=== PATIENT | female | born 1975 | race Caucasian/White ===

== ENCOUNTER 2016-12-24 09:17 | Observation (INO) | payer OTHER ==
[2016-12-24 09:23] VITALS: BP 171/84; PULSE 73; RESP 18; TEMP 98.6; O2SAT 100
[2016-12-24] MEDS ORDERED: Sodium Chloride 0.9% 1,000 ML IV STA (09:43)
--- NOTE | 2016-12-24 09:57 | ED PDOC ---
HPI: Female Pain Time Seen by Provider: 12/24/16 09:26 Chief Complaint (Nursing): Female Genitourinary Chief Complaint (Provider): Vaginal bleeding History Per: Patient History/Exam Limitations: no limitations Onset/Duration Of Symptoms: Days (15) Current Symptoms Are (Timing): Still Present Additional History Per: Patient Additional Complaint(s): Vaginal bleeding for 15 days. Period started 15 days ago and never stopped. Feels pain to the left pelvic and abd. No nausea, vomit, diarrhea. No back pain. No dysuria. No chest pain, dizziness. Past Medical History Reviewed: Nursing Documentation, Vital Signs Vital Signs: Last Vital Signs Temp 98.6 F 12/24/16 09:22 Pulse 73 12/24/16 09:22 Resp 18 12/24/16 09:22 BP 171/84 H 12/24/16 09:22 Pulse Ox 100 12/24/16 09:22 - Medical History PMH: No Chronic Diseases - Surgical History Other surgeries: tubal ligation - Family History Family History: States: Unknown Family Hx - Living Arrangements Living Arrangements: With Family - Social History Current smoker - smoking cessation education provided: No Alcohol: None Drugs: Denies - Allergies Allergies/Adverse Reactions: Allergies Allergy/AdvReac Type Severity Reaction Status Date / Time No Known Allergies Allergy Verified 12/24/16 09:28 Review of Systems ROS Statement: Except As Marked, All Systems Reviewed And Found Negative Gastrointestinal: Positive for: Abdominal Pain Genitourinary Female: Positive for: Vaginal Bleeding, Pelvic Pain Physical Exam - Reviewed Nursing Documentation Reviewed: Yes Vital Signs Reviewed: Yes - Physical Exam Appears: Positive for: Well, Non-toxic, No Acute Distress Head Exam: Positive for: ATRAUMATIC, NORMAL INSPECTION, NORMOCEPHALIC Skin: Positive for: Normal Color, Warm, DRY Eye Exam: Positive for: EOMI, Normal appearance, PERRL ENT: Positive for: Normal ENT Inspection Neck: Positive for: Normal, Painless ROM, Supple Cardiovascular/Chest: Positive for: Regular Rate, Rhythm Respiratory: Positive for: CNT, Normal Breath Sounds Gastrointestinal/Abdominal: Positive for: Bowel Sounds, Soft, Tenderness (abd pain upper and lower abd L mild) Pelvic Exam: Positive for: External Exam Normal. Negative for: Speculum Exam Normal (mild vaginal bleeding, dark blood.), Tender Adnexa, Tender Uterus Back: Positive for: Normal Inspection. Negative for: L CVA Tenderness, R CVA Tenderness Extremity: Positive for: Normal ROM Neurologic/Psych: Positive for: Alert, Oriented - Laboratory Results Result Diagrams: 12/24/16 09:56 12/24/16 09:56 Interpretation Of Abn Labs: no acute - ECG O2 Sat by Pulse Oximetry: 100 - CT Scan/US US Other Rad Studies (CT/US): Read By Radiologist Other Rad Interpretation: ovarian cyst ED OBSERVATION Discharge: Yes Date of observation admission: 12/24/16 Time of observation admission: 09:45 - Observation admission statement Patient is being placed in observation because:: abd pain eval - Goals of Observation Goals of observation are:: labs and imaging pending - Progress Note Progress Note: 12/24/16 13:35 Stable. Feels better. Fu with obgyn. Disposition - Clinical Impression Clinical Impression: Abnormal vaginal bleeding - Patient ED Disposition Is Patient to be Admitted: No Counseled Patient/Family Regarding: Studies Performed, Diagnosis, Need For Followup - Disposition Disposition: Routine/Home Disposition Time: 13:40 Condition: STABLE
[2016-12-24 10:12] LABS: BASO % 0.5 % (0.0-2.0); EOS # 0.5 K/uL (0.0-0.7); EOS % 6.1 % (0.0-4.0); HEMATOCRIT 35.5 % (34.0-47.0); LYMPH # 2.1 K/uL (1.0-4.3); LYMPH % 25.8 % (20.0-40.0); MEAN CELL VOLUME 87.3 fl (81.0-99.0); MEAN CORPUSCULAR HEMOGLOBIN 30.1 pg (27.0-31.0); MEAN CORPUSCULAR HGB CONC 34.5 g/dL (33.0-37.0); MONO # 0.5 K/uL (0.0-0.8); MONO % 6.3 % (0.0-10.0); NEUT # 5.1 K/uL (1.8-7.0); NEUT % 61.3 % (50.0-75.0); WHITE BLOOD COUNT 8.3 K/uL (4.8-10.8)
[2016-12-24 10:23] LABS: ALB/GLOB RATIO 1.2 (1.0-2.1); ALKALINE PHOSPHATASE 63 U/L (38-126); ALT/SGPT 24 U/L (9-52); AST/SGOT 22 U/L (14-36); BILIRUBIN,TOTAL 0.4 mg/dl (0.2-1.3); BLOOD UREA NITROGEN 8 mg/dl (7-17); CALCIUM 9.2 mg/dL (8.4-10.2); CARBON DIOXIDE 24 mmol/L (22-30); CHLORIDE 105 mmol/L (98-107); GFR AFRICAN-AMERICAN > 60; GLUCOSE,RANDOM 158 mg/dL (65-105); POTASSIUM 4.1 MMOL/L (3.6-5.0); SODIUM 141 mmol/l (132-148); TOTAL PROTEIN 7.2 G/DL (6.3-8.2)
[2016-12-24 10:26] LABS: PARTIAL THROMBOPLASTIN TIME 24.6 SECONDS (23.3-32.5)
--- NOTE | 2016-12-24 12:12 | US ---
HISTORY: pelvic pain COMPARISON: None available. TECHNIQUE: Pelvis ultrasound FINDINGS: UTERUS: Measures 9.6 x 4.4 x 5.8 cm. Anteverted. ENDOMETRIUM: Measures 8 mm in diameter. CERVIX: No cervical abnormality identified. RIGHT OVARY: Measures 3.4 x 2.2 x 2.3 cm. Blood flow is demonstrated. 2.3 x 1.8 x 1.6 hypoechoic lesion with evidence of septation, likely cyst. LEFT OVARY: Measures 3.9 x 1.6 x 2.4 cm. Blood flow is demonstrated. FREE FLUID: No significant free fluid noted. OTHER FINDINGS: None. IMPRESSION: 2.3 x 1.8 x 1.6 right ovarian hypoechoic lesion with evidence of septation, likely cyst. Recommend 6 week ultrasound follow-up to assess for resolution.
== END 2016-12-24 13:41 | disposition home or self-care (01) ==
LOC: H.ER 09:17 → H.EROBSV 09:43
PROVIDERS: ADMIT Emergency Medicine; ATTEND Emergency Medicine
DX: N93.9 Abnormal uterine and vaginal bleeding, unspecified (principal)

== ENCOUNTER 2017-01-07 13:37 | Emergency (ER) | payer OTHER, SELFPAY ==
[2017-01-07 14:21] VITALS: O2SAT 98
[2017-01-07 14:26] VITALS: BP 146/93; PULSE 72; RESP 20; TEMP 98.5
[2017-01-07] MEDS ORDERED: Sodium Chloride 0.9% 1,000 ML IV STA (14:45)
[2017-01-07 15:36] LABS: HEMATOCRIT 32.2 % (34.0-47.0); MEAN CELL VOLUME 87.1 fl (81.0-99.0); MEAN CORPUSCULAR HEMOGLOBIN 29.1 pg (27.0-31.0); MEAN CORPUSCULAR HGB CONC 33.4 g/dL (33.0-37.0); RED CELL DISTRIBUTION WIDTH 13.1 % (11.5-14.5); WHITE BLOOD COUNT 9.6 K/uL (4.8-10.8)
--- NOTE | 2017-01-07 15:48 | ED PDOC ---
HPI: Female Pain Time Seen by Provider: 01/07/17 14:44 Chief Complaint (Nursing): Abdominal Pain Chief Complaint (Provider): Vaginal bleeding History Per: Patient History/Exam Limitations: no limitations Onset/Duration Of Symptoms: Days Current Symptoms Are (Timing): Still Present Additional Complaint(s): Pt was here on 12/24/16 for vaginal bleeding. Pt states she called the clinic to make an appointment but they told her she had to be seen in the ER first. states when he called he told them he was referred by Dr. Blaine Barry, he did not mention she was seen in ER. PT states the bleeding is the same. Denies SOB, dizziness, etc. Past Medical History Reviewed: Historical Data, Nursing Documentation, Vital Signs Vital Signs: Last Vital Signs Temp 98.5 F 01/07/17 14:26 Pulse 72 01/07/17 14:26 Resp 20 01/07/17 14:26 BP 146/93 H 01/07/17 14:26 Pulse Ox 98 01/07/17 14:26 - Medical History PMH: No Chronic Diseases - Surgical History Surgical History: No Surg Hx - Family History Family History: States: Unknown Family Hx - Living Arrangements Living Arrangements: With Family - Social History Current smoker - smoking cessation education provided: No - Home Medications Home Medications: Ambulatory Orders Medication Instructions Recorded MedroxyPROGESTERone [Provera] 10 mg PO DAILY #10 tab 01/07/17 - Allergies Allergies/Adverse Reactions: Allergies Allergy/AdvReac Type Severity Reaction Status Date / Time No Known Allergies Allergy Verified 01/07/17 14:17 Review of Systems ROS Statement: Except As Marked, All Systems Reviewed And Found Negative Genitourinary Female: Positive for: Vaginal Bleeding Physical Exam - Reviewed Nursing Documentation Reviewed: Yes Vital Signs Reviewed: Yes - Physical Exam Appears: Positive for: Well, Non-toxic, No Acute Distress Head Exam: Positive for: ATRAUMATIC, NORMAL INSPECTION, NORMOCEPHALIC Skin: Positive for: Normal Color, Warm, DRY Eye Exam: Positive for: Normal appearance ENT: Positive for: Normal ENT Inspection Neck: Positive for: Normal, Painless ROM Cardiovascular/Chest: Positive for: Regular Rate, Rhythm Respiratory: Positive for: Normal Breath Sounds. Negative for: Accessory Muscle Use, Respiratory Distress Gastrointestinal/Abdominal: Positive for: Normal Exam, Bowel Sounds, Soft. Negative for: Tenderness Back: Positive for: Normal Inspection Extremity: Positive for: Normal ROM Neurologic/Psych: Positive for: Alert, Oriented - Laboratory Results Result Diagrams: 01/07/17 15:15 01/07/17 15:15 - ECG O2 Sat by Pulse Oximetry: 98 Disposition - Clinical Impression Clinical Impression: Abnormal vaginal bleeding - Patient ED Disposition Is Patient to be Admitted: No Counseled Patient/Family Regarding: Diagnosis, Need For Followup, Rx Given - [facility]position [facility] Disposition: Routine/Home Disposition Time: 17:01 Condition: GOOD Prescriptions: MedroxyPROGESTERone [Provera] 10 mg PO DAILY #10 tab Instructions: Dysfunctional Uterine Bleeding (ED)
[2017-01-07 15:50] LABS: ALB/GLOB RATIO 1.5 (1.0-2.1); ALKALINE PHOSPHATASE 47 U/L (38-126); ALT/SGPT 29 U/L (9-52); AST/SGOT 20 U/L (14-36); BILIRUBIN,TOTAL 0.2 mg/dl (0.2-1.3); BLOOD UREA NITROGEN 9 mg/dl (7-17); CALCIUM 9.3 mg/dL (8.4-10.2); CARBON DIOXIDE 24 mmol/L (22-30); CHLORIDE 105 mmol/L (98-107); GFR AFRICAN-AMERICAN > 60; GLUCOSE,RANDOM 91 mg/dL (65-105); POTASSIUM 4.2 MMOL/L (3.6-5.0); SODIUM 139 mmol/l (132-148); TOTAL PROTEIN 7.3 G/DL (6.3-8.2)
== END 2017-01-07 17:26 | disposition home or self-care (01) ==
LOC: H.ER 13:37
DX: N93.8 Other specified abnormal uterine and vaginal bleeding (principal)

== ENCOUNTER 2017-02-09 12:26 | Emergency (ER) | payer SELFPAY ==
[2017-02-09 12:42] VITALS: RESP 18
[2017-02-09] MEDS ORDERED: Sodium Chloride 0.9% 1,000 ML IV STA (13:28)
[2017-02-09 13:42] LABS: BASO % 0.7 % (0.0-2.0); EOS # 0.2 K/uL (0.0-0.7); EOS % 3.5 % (0.0-4.0); HEMATOCRIT 21.4 % (34.0-47.0); LYMPH % 30.1 % (20.0-40.0); MEAN CELL VOLUME 81.4 fl (81.0-99.0); MEAN CORPUSCULAR HGB CONC 31.9 g/dL (33.0-37.0); MEAN PLATELET VOLUME 8.3 fl (7.2-11.7); MONO # 0.6 K/uL (0.0-0.8); MONO % 9.5 % (0.0-10.0); NEUT # 3.8 K/uL (1.8-7.0); NEUT % 56.2 % (50.0-75.0); NRBC % 0.2 % (0.0-0.0); RED CELL DISTRIBUTION WIDTH 14.5 % (11.5-14.5); WHITE BLOOD COUNT 6.8 K/uL (4.8-10.8)
[2017-02-09 13:57] LABS: BLOOD UREA NITROGEN 9 mg/dl (7-17); CALCIUM 9.5 mg/dL (8.4-10.2); CARBON DIOXIDE 23 mmol/L (22-30); CHLORIDE 106 mmol/L (98-107); GFR AFRICAN-AMERICAN > 60; GLUCOSE,RANDOM 86 mg/dL (65-105); POTASSIUM 4.2 MMOL/L (3.6-5.0); SODIUM 141 mmol/l (132-148)
[2017-02-09 14:11] LABS: PARTIAL THROMBOPLASTIN TIME 28.2 Seconds (25.6-37.1)
--- NOTE | 2017-02-09 14:11 | ED PDOC ---
HPI: General Adult Time Seen by Provider: 02/09/17 13:05 Chief Complaint (Nursing): Abnormal Labs History Per: Patient (states that she was advised to go the ER because of low blood count on outpatient lab. patient has had several weeks of heavy vaginal bleeding that was controlled 3 days ago after she has taken several days of Provera.) History/Exam Limitations: no limitations Past Medical History Reviewed: Historical Data, Nursing Documentation, Vital Signs Vital Signs: Last Vital Signs Temp 98.9 F 02/09/17 12:39 Pulse 75 02/09/17 12:39 Resp 18 02/09/17 12:39 BP 127/72 02/09/17 12:39 Pulse Ox 100 02/09/17 12:39 - Medical History PMH: No Chronic Diseases - Surgical History Surgical History: No Surg Hx - Family History Family History: States: Unknown Family Hx - Living Arrangements Living Arrangements: With Family - Home Medications Home Medications: Ambulatory Orders Medication Instructions Recorded MedroxyPROGESTERone [Provera] 10 mg PO DAILY #10 tab 01/07/17 - Allergies Allergies/Adverse Reactions: Allergies Allergy/AdvReac Type Severity Reaction Status Date / Time No Known Allergies Allergy Verified 01/07/17 14:17 Review of Systems ROS Statement: Except As Marked, All Systems Reviewed And Found Negative Constitutional: Negative for: Fever Respiratory: Positive for: SOB with Exertion Gastrointestinal: Negative for: Nausea, Vomiting, Abdominal Pain, Diarrhea Genitourinary Female: Negative for: Dysuria, Frequency Physical Exam - Reviewed Nursing Documentation Reviewed: Yes Vital Signs Reviewed: Yes - Physical Exam Appears: Positive for: Well, Non-toxic, No Acute Distress Head Exam: Positive for: ATRAUMATIC, NORMAL INSPECTION, NORMOCEPHALIC Skin: Positive for: Normal Color, Warm, DRY Eye Exam: Positive for: Normal appearance ENT: Positive for: Normal ENT Inspection Neck: Positive for: Normal Cardiovascular/Chest: Positive for: Regular Rate, Rhythm Respiratory: Positive for: CNT, Normal Breath Sounds Gastrointestinal/Abdominal: Positive for: Normal Exam Back: Positive for: Normal Inspection Extremity: Positive for: Normal ROM Neurologic/Psych: Positive for: Alert, Oriented - Laboratory Results Result Diagrams: 02/09/17 13:15 02/09/17 13:15 - ECG O2 Sat by Pulse Oximetry: 100 Medical Decision Making Medical Decision Making: case d/w Dr. Simeon. Patient is stable from the rn radiation oncology point of view. Defers treatment of anemia to FP. CAse d/w FP. Will admit for transfusion Disposition - Clinical Impression Clinical Impression: Symptomatic anemia - Patient ED Disposition Is Patient to be Admitted: Yes Doctor Will See Patient In The: Hospital Counseled Patient/Family Regarding: Diagnosis - Disposition Disposition: Transfer of Care Disposition Time: 14:18 Condition: STABLE - Pt Status Changed To: Hospital Disposition Of: Observation - POA Present On Arrival: None
[2017-02-09 15:01] VITALS: BP 112/66; PULSE 77; TEMP 98; O2SAT 99
--- NOTE | 2017-02-09 16:12 | CP.PCM.PCO ---
Physician Communication Note - Physician Communication Note Physician Communication Note: Patient signed out AMA. All risks and benefits discussed. Addendum Addendum: 02/09/17 16:07 Patient signed out AMA. All risks and benefits discussed with patient and . Patient verbalizes understanding. AMA form signed and given to RN.
== END 2017-02-09 15:10 | disposition left against medical advice (07) ==
LOC: H.ER 12:26 → UNDOADMOB 14:18 → H.ERHOLD 14:18 → UNDODISOB 15:10
DX: D64.9 Anemia, unspecified (principal)